=== PATIENT | male | born 1965 | race African-American/Black ===

== ENCOUNTER 2024-02-13 12:51 | Emergency (ER) | payer OTHER, SELFPAY ==
[2024-02-13] VITALS (12 sets, daily range): BP systolic 120–178; BP diastolic 81–97; BMI 30.1
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
[2024-02-13] MEDS: BENADRYL 25 MG IV (13:53)
[2024-02-13] MEDS: NSS 1000 IV (13:53)
[2024-02-13] MEDS: REGLAN 10 MG IV (13:53)
[2024-02-13 14:27] LABS: ALT (SGPT) 37 U/L (0-50); AST (SGOT) 40 U/L (17-59); Albumin 4.8 g/dl (3.5-5.0); Alkaline Phosphatase 47 U/L (38-126); Blood Urea Nitrogen 16 mg/dl (9-20); Calcium 9.9 mg/dl (8.4-10.2); Carbon Dioxide 27 mmol/L (22-30); Chloride 97 mmol/L (98-107); Glucose 124 mg/dl (70-99); Potassium 4.5 mmol/L (3.5-5.1); Sodium 137 mmol/L (135-145); Total Bilirubin 0.6 mg/dl (0.2-1.3); Total Protein 7.4 g/dl (6.3-8.2); eGFR > 60.00
[2024-02-13 14:28] LABS: % Basophils 0.5 % (0-2); % Immature Granulocytes 0.3 % (0-0.5); % Lymphocytes 9.6 % (20.5-51.1); % Monocytes 3.6 % (1.7-9.3); Absolute Lymphocytes 0.6 10^3/uL (1.2-3.4); Absolute Monocytes 0.2 10^3/uL (0.1-0.6); Absolute Neutrophils 5.5 10^3/uL (1.4-6.5); Hematocrit 38.9 % (39.0-52.0); Hemoglobin 13.4 g/dL (13.0-18.0); Mean Corp Hgb Conc. 34.4 g/dL (33.0-37.0); Mean Corpuscular Hgb 27.9 pg (27.0-31.0); Mean Platelet Volume 10.1 fL (7.4-10.4); Nucleated Red Blood Cells % 0 % (-); Platelet Count 257 10^3/uL (130-400); Red Cell Dist. Width 13.9 % (11.5-14.5); White Blood Cell Count 6.4 10^3/uL (4.8-10.8)
[2024-02-13] MEDS: TRANDATE 10 MG IV (15:55)
== END 2024-02-13 17:30 | disposition short-term general hospital (02) ==
LOC: EMR 12:51
PROVIDERS: EMERGENCY PHYSICIAN Emergency Medicine; FAMILY PHYSICIAN Family Medicine
DX: S06.5X0A Traumatic subdural hemorrhage without loss of consciousness, initial encounter (principal); R11.0 Nausea; R51.9 Headache, unspecified; V48.0XXA Car driver injured in noncollision transport accident in nontraffic accident, initial encounter; G47.30 Sleep apnea, unspecified
CPT/HCPCS: 99291; 96374; 96375 ×2; 96361; 70450; 80053; 85025

== ENCOUNTER → 2024-02-29 13:41 | Outpatient (REF) | payer OTHER, SELFPAY | LOC: HWRAD 13:41 | PROVIDERS: FAMILY PHYSICIAN Family Medicine | DX: S06.5XAA Traumatic subdural hemorrhage with loss of consciousness status unknown, initial encounter (principal) | CPT/HCPCS: 70450 ==

== ENCOUNTER → 2024-03-14 14:30 | Outpatient (REF) | payer OTHER, SELFPAY | LOC: HWRAD 14:30 | PROVIDERS: ATTENDING PHYSICIAN Radiology Neuroradiology; FAMILY PHYSICIAN Family Medicine | DX: S06.5XAA Traumatic subdural hemorrhage with loss of consciousness status unknown, initial encounter (principal) | CPT/HCPCS: 70450 ==

== ENCOUNTER → 2024-04-21 13:53 | Outpatient (REF) | payer OTHER, SELFPAY | LOC: HWRAD 13:53 | PROVIDERS: ATTENDING PHYSICIAN Nurse Practitioner Acute Care; FAMILY PHYSICIAN Family Medicine | DX: S06.5XAA Traumatic subdural hemorrhage with loss of consciousness status unknown, initial encounter (principal) | CPT/HCPCS: 70450 ==

== ENCOUNTER → 2024-06-20 13:58 | Outpatient (REF) | payer OTHER, SELFPAY | LOC: HWRAD 13:58 | PROVIDERS: ATTENDING PHYSICIAN Radiology Neuroradiology; FAMILY PHYSICIAN Family Medicine | DX: S06.5XAA Traumatic subdural hemorrhage with loss of consciousness status unknown, initial encounter (principal) | CPT/HCPCS: 70450 ==

== ENCOUNTER → 2024-11-03 10:14 | Outpatient (REF) | payer OTHER, SELFPAY | LOC: RAD 10:14 | PROVIDERS: ATTENDING PHYSICIAN Internal Medicine Cardiovascular Disease; FAMILY PHYSICIAN Family Medicine | DX: I10 Essential (primary) hypertension (principal); Z86.73 Personal history of transient ischemic attack (TIA), and cerebral infarction without residual deficits | CPT/HCPCS: 75574; Q9967 ==

== ENCOUNTER 2025-03-23 10:36 | Outpatient (RCR) | payer OTHER, SELFPAY | END 2025-03-23 23:59 | disposition home or self-care (01) | LOC: RST 10:36 | PROVIDERS: ATTENDING PHYSICIAN Family Medicine | DX: I69.220 Aphasia following other nontraumatic intracranial hemorrhage (principal); I69.218 Other symptoms and signs involving cognitive functions following other nontraumatic intracranial hemorrhage; Z73.6 Limitation of activities due to disability | CPT/HCPCS: 92507; 92523 ==